=== PATIENT | male | born 1950 | race Caucasian/White ===

== ENCOUNTER 2018-01-19 07:30 | Inpatient (IN) ==
[2018-01-12 15:01] LABS: Basophils # (Auto) 0 K/mcL (0.0-0.3); Basophils % (Auto) 0.5 % (0.0-2.0); Eosinophils # (Auto) 0.2 K/mcL (0.0-0.7); Eosinophils % (Auto) 2.6 % (0.0-7.0); Granulocytes % (Auto) 55.8 % (38.0-78.0); Lymphocytes # (Auto) 2.3 K/mcL (1.5-4.8); Mean Cell Volume 90.7 fL (80.0-100.0); Mean Corpuscular HGB Conc 33.3 g/dL (31.0-36.0); Mean Corpuscular Hemoglobin 30.2 pg (26.0-34.0); Monocytes # (Auto) 0.7 K/mcL (0.1-0.9); Monocytes % (Auto) 9.1 % (1.0-12.0); Platelet Count 249 K/mcL (140-440); RBC 5.06 M/mcL (4.50-5.90); Red Cell Distribution Width 13.3 % (11.5-14.5)
[2018-01-12 15:21] LABS: Blood Urea Nitrogen 14 mg/dl (8-23)
[2018-01-13 09:19] LABS: Appearance,Urine CLEAR; Bilirubin,Urine NEG (NEG); Color,Urine YELLOW; Glucose,Urine (UA) NEGATIVE (NEG); Leukocyte Esterase,Urine NEG /uL (NEG); Protein,Urine NEG (NEG); Specific Gravity,Urine 1.019 (1.000-1.035); Urine Blood NEG mg/dL (<0.03); Urobilinogen,Urine NEG (NEG)
[~2018-01-19 07:30] MED LIST: CELECOXIB 200 MG CAPSULE PO SCH; PREGABALIN 75 MG CAPSULE PO SCH; ceFAZolin 1 GM VIAL IV SCH; oxyCODONE 10 MG TAB.ER.12H PO SCH
[2018-01-19] MEDS ORDERED: fentaNYL 250 MCG/5 ML VIAL IV ONE (18:35)
[2018-01-19] MEDS ORDERED: LIDOCAINE HCL/PF 100 MG/5 ML SYRINGE IV ONE (18:35)
[2018-01-19] MEDS ORDERED: ONDANSETRON 4 MG/2 ML VIAL IV ONE (18:35)
[2018-01-19] MEDS ORDERED: GLYCOPYRROLATE 0.2 MG/ML VIAL IV ONE (18:35)
[2018-01-19] MEDS ORDERED: PROPOFOL 200 MG/20 ML VIAL IV ONE (18:35)
[2018-01-19] MEDS ORDERED: SUCCINYLCHOLINE 20 MG/ML ML IV ONE (18:35)
[2018-01-19] MEDS ORDERED: DEXAMETHASONE 10 MG/ML VIAL IV ONE (18:35)
[2018-01-19] MEDS ORDERED: TRANEXAMIC ACID 1,000 MG/10 ML VIAL IV ONE ×2 (18:35→20:41)
[2018-01-19] MEDS ORDERED: ePHEDrine 50 MG/ML AMPUL IV ONE (18:35)
[2018-01-19] MEDS ORDERED: MIDAZOLAM 5 MG/5 ML VIAL IV ONE (18:35)
[2018-01-19] MEDS ORDERED: GENTAMICIN SULFATE 800 MG/20 ML VIAL IR ONE (19:34)
[2018-01-19] MEDS ORDERED: ePHEDrine 50 MG/ML AMPUL IV PRN (19:36)
[2018-01-19] MEDS ORDERED: MEPERIDINE 25 MG/ML SYRINGE IV PRN (19:36)
[2018-01-19] MEDS ORDERED: FLUMAZENIL 0.1 MG/ML ML IV PRN (19:36)
[2018-01-19] MEDS ORDERED: METHOCARBAMOL 1,000 MG/10 ML VIAL IV PRN (19:36)
[2018-01-19] MEDS ORDERED: HYDROmorphone 2 MG/ML VIAL IV PRN (19:36)
[2018-01-19] MEDS ORDERED: ATROPINE SULFATE 0.4 MG/ML VIAL IV PRN (19:36)
[2018-01-19] MEDS ORDERED: IPRATROPIUM/ALBUTEROL 3 ML AMPUL.NEB NEB PRN (19:36)
[2018-01-19] MEDS ORDERED: diphenhydrAMINE 50 MG/ML VIAL IV PRN (19:36)
[2018-01-19] MEDS ORDERED: ACETAMINOPHEN 1,000 MG/100 ML BOTTLE IV ONE (19:36)
[2018-01-19] MEDS ORDERED: NALOXONE HCL 0.4 MG/ML VIAL IV PRN (19:36)
[2018-01-19] MEDS ORDERED: PROMETHAZINE 25 MG/ML VIAL IV PRN ×2 (19:36→20:41)
[2018-01-19] MEDS ORDERED: ONDANSETRON 4 MG/2 ML VIAL IV PRN ×2 (19:36→20:41)
[2018-01-19] MEDS ORDERED: LACTATED RINGERS 1,000 ML IV SCH (19:45)
--- NOTE | 2018-01-19 20:40 | Brief Operative Note ---
Date of procedure: 01/19/18 Pre-op diagnosis: left shoulder oa, biceps tendonitis Post-op diagnosis: same Procedure: left total shoulder arthroplasty, biceps tenodesis Grafts/Implants: Yes Anesthesia: GETA Complications: none Surgeon: [place] Folding Machine Tender: Ev Velazquez Estimated blood loss (cc): 150 Specimens Removed/Pathology: none sent Condition: stable Disposition: PACU
[2018-01-19] MEDS ORDERED: ONDANSETRON ODT 4 MG TABLET SL PRN (20:41)
[2018-01-19] MEDS ORDERED: KETOROLAC 15 MG/ML VIAL IV PRN (20:41)
[2018-01-19] MEDS ORDERED: FLEETS ADULT ENEMA PR PRN (20:41)
[2018-01-19] MEDS ORDERED: BISACODYL 10 MG SUPP.RECT PR PRN (20:41)
[2018-01-19] MEDS ORDERED: BENZOCAINE/MENTHOL 1 LOZENGE PO PRN (20:41)
[2018-01-19] MEDS ORDERED: HYDROcodone/APAP 10/325MG TABLET PO PRN (20:41)
[2018-01-19] MEDS ORDERED: MAGNESIUM HYDROXIDE 30 ML ORAL.SUSP PO PRN (20:41)
[2018-01-19] MEDS ORDERED: POLYETHYLENE GLYCOL 3350 17 GM PACKET PO PRN (20:41)
[2018-01-19] MEDS ORDERED: METHOCARBAMOL 750 MG TABLET PO PRN (20:41)
--- NOTE | 2018-01-19 20:41 | Discharge Summary ---
Ortho Discharge - TSA - Patient Instructions Diet: Regular Diet Activity: non weight bearing Total Shoulder Protocol: Leave immobilizer in place except for bathing and ROM. Abduction pillow. Continue to wear sling until seen by physician. Codman Pendulum : These exercises use momentum produced by your body to move your shoulder joint. Bend your knees and shift your weight to your front leg, then back, allowing your arm to swing in the same directions. Using the same technique, alternately shift your weight between your right and left legs, allowing your arm to swing from side to side. These exercises are also performed in counterclockwise and clockwise circular motions. Typically these exercises are performed several times per day, for a set number repetitions or minutes, such as 20 times in a row or 5 minutes at a time. Dressing Care: May shower in 2 days - Follow Up Plan Disposition: Home, Self-Care Prognosis: Good Rehab Potential: Good I certify that the patient requires SNF services: Yes Overall status at discharge: patient is progressing back to baseline
[2018-01-19] MEDS ORDERED: SENNOSIDES 1 TABLET PO SCH (21:00)
[2018-01-19] MEDS: fentaNYL 100 MCG/2 ML VIAL IV PRN ×2 (21:27→21:33)
[2018-01-19] MEDS: 0.9 % SODIUM CHLORIDE 1,000 ML IV SCH (22:08)
[2018-01-19] MEDS: 0.9 % SODIUM CHLORIDE 10 ML SYRINGE IV SCH (22:13)
[2018-01-19] MEDS: ceFAZolin 1 GM VIAL IV SCH (23:24)
[2018-01-19] MEDS: DOCUSATE SODIUM 100 MG CAPSULE PO SCH (23:35)
[2018-01-20] MEDS: 0.9 % SODIUM CHLORIDE 1,000 ML IV SCH (05:12)
[2018-01-20] MEDS: 0.9 % SODIUM CHLORIDE 10 ML SYRINGE IV SCH (05:13)
[2018-01-20] MEDS: ceFAZolin 1 GM VIAL IV SCH (06:41)
--- NOTE | 2018-01-20 07:39 | Orthopedic Progress Note ---
Subjective Patient information: Note initiated : 01/20/18 at 7:38 am Service Date, if different from initiated Date: [] Patient: Devan Noonan 67 y/o M admitted on 01/19/18 for Left Total Shoulder Arthroplasty with Bicep Tendon. Chief Complaint: [] Interval history: doing well minimal pain Objective Vital signs: Vital Signs Temp Pulse Pulse Resp BP BP Pulse Ox 01/20/18 07:25 97.5 F 73 14 112/57 97 01/20/18 04:41 97.6 F 81 14 100/59 93 01/20/18 00:49 80 98/61 93 01/19/18 23:49 78 97/58 96 01/19/18 23:19 86 114/65 91 01/19/18 22:57 76 16 92 01/19/18 22:49 72 127/71 93 01/19/18 22:37 95 01/19/18 22:34 74 112/74 96 01/19/18 22:17 77 136/80 98 01/19/18 22:04 74 127/75 96 01/19/18 21:47 97.5 F 77 14 138/77 92 01/19/18 21:34 98.2 F 78 16 113/72 96 01/19/18 21:17 98.2 F 71 14 129/66 97 01/19/18 21:03 98.5 F 84 16 119/66 95 01/19/18 20:48 97.5 F 92 H 16 133/63 92 01/19/18 16:00 96.8 F L 68 18 127/78 Intake and Output 01/19/18 01/20/18 01/20/18 21:59 05:59 13:59 Intake Total 1500 / 1500 983 / 983 Output Total 300 / 300 Balance 1500 / 1500 683 / 683 Intake: IV 883 / 883 Sodium Chloride 0.9% 1,000 ml @ 883 / 883 125 mls/hr IV .Q8H [facility] Rx#: [id number] Oral 100 / 100 IV - Manual Only 1500 / 1500 Output: Void Amount 300 / 300 Other: Weight 299 lb 284 lb Intake & Output: Intake & Output 01/19/18 01/20/18 01/20/18 21:59 05:59 13:59 Intake Total 1500 / 1500 983 / 983 Output Total 300 / 300 Balance 1500 / 1500 683 / 683 Weight 299 lb 284 lb Intake: IV 883 / 883 Sodium Chloride 0.9% 1,000 ml @ 883 / 883 125 mls/hr IV .Q8H [facility] Rx#: [id number] Oral 100 / 100 IV - Manual Only 1500 / 1500 Output: Void Amount 300 / 300 Incision: Yes healing Incision clean and dry: Yes Dressing: Yes clean, Yes dry, Yes intact Weight bearing status: non Neurological exam IM: Yes alert, Yes normal gait, Yes oriented X3, Yes motor sensory intact, Yes neurovascular intact Extremities exam IM: No calf tenderness, Yes Foot pink and warm, Yes neurovascular intact - Labs CBC & BMP: 01/20/18 05:00 01/12/18 13:33 Labs: 01/20/18 01/12/18 05:00 13:33 Hgb 14.0 15.3 Hct 42.4 45.9 Assessment and Plan (1) Osteoarthritis, shoulder pod 1 s/p tsa pain control home today pt Status: Acute
--- NOTE | 2018-01-20 08:06 | XRay Report ---
HISTORY: Reason for Exam:Post-Op Total Shoulder FINDINGS: Patient has well-positioned left shoulder prosthesis. In the glenoid there is a small linear metallic foreign body which may be an anchor. No fracture or abnormal soft tissue calcification are present. Mild arthritis is present at the acromioclavicular joint. There is degenerative disc disease and arthritis in the lower cervical spine. IMPRESSION: Well-positioned left shoulder prosthesis Interpreted and Authenticated by: Devan Cobos 01/20/18
[2018-01-20] MEDS: DOCUSATE SODIUM 100 MG CAPSULE PO SCH (08:28)
--- NOTE | 2018-01-20 09:36 | Operative Note ---
DATE OF OPERATION: 01/19/2018 PREOPERATIVE DIAGNOSES: 1. Left shoulder osteoarthritis. 2. Left shoulder proximal biceps tendonitis. POSTPERATIVE DIAGNOSES: 1. Left shoulder osteoarthritis. 2. Left shoulder proximal biceps tendonitis. PROCEDURES: 1. Left total shoulder arthroplasty. 2. Left shoulder proximal biceps tenodesis soft tissue. SURGEON: Heidy Mattson M.D. [employer] SURGEON: Ev Velazquez PA-C ANESTHESIA: General. ESTIMATED BLOOD LOSS: 200 mL COMPLICATIONS: None noted. SPECIMENS REMOVED: None. DRAINS: None. IMPLANTS: DePuy CMW2 bone cement 20 grams x2, DePuy global anchor peg glenoid, Premieron X-link polyethylene size 48, DePuy global unite anatomic proximal body 135 degrees size 16 [place], DePuy global unite Por[place]oat standard stem size 16, DePuy global unite eccentric humeral head size 48 x 21. INDICATIONS: The patient has had a long-standing history of worsening pain in the shoulder that has failed conservative treatment. Radiographs have confirmed advanced degenerative joint disease. After a long discussion about treatment options, the patient elected to proceed with a total shoulder arthroplasty. The risks and benefits were discussed with the patient in detail including, but not limited to, the risks of anesthesia, problems with the heart or lungs related to anesthesia, infection, compromise or injury to the nerves and blood vessels, deep venous thrombosis, pulmonary embolism, pneumonia, continued pain after surgery, worsening pain or symptoms after surgery, swelling, loss of motion, instability, fracture, arm length discrepancy, and need for repeat surgery. DESCRIPTION OF PROCEDURE: The patient was seen in the pre-anesthesia waiting room where all questions were answered and the correct side and site were identified and marked. The patient was transferred to the operating room and administered the anesthetic and given pre-operative antibiotics. A time-out was then called. The patient was placed in the modified beach chair position with all prominences well padded. The extremity was prepped and draped from the fingers up to the neck. A standard deltopectoral skin incision was created. Dissection was carried down to the deltopectoral groove and the cephalic vein was isolated medially and retracted laterally with the deltoid. Retractors were placed and the coracobrachialis was split up to the coracoacromial ligament allowing retraction of the conjoined tendon. We split the subscapularis 1 cm medial to the bicipital groove and extended the split into the rotator interval. This was tagged for later repair. The biceps was cut and a soft tissue tenodesis was performed into the anterior shoulder with #2 FiberWire. A capsular release was performed in a posterior subperiosteal direction along the humerus. The humeral head was then dislocated. We established intramedullary access and hand reamed up to get good cortical chatter with the DePuy Global AP total shoulder instrumentation. We then used the intramedullary guide and set to about 30 degrees of retroversion. The proximal humerus cut was performed and osteophytes were removed. A metal protector plate was then placed. Attention was then turned to the glenoid. Retractors were placed for optimal visualization and the labrum was excised in its entirety. A centralizing Steinmann pin was placed just into the posterior inferior quadrant in a standard fashion. We reamed over the pin to remove all the cartilage and get to a good base for the prosthesis. The drill was then placed over for the central peg. The glenoid was sized and surface was inspected to confirm conformity. The template base-plate was used to drill the three additional pegs, anchoring each with the anti-rotation peg. All bleeding was stopped with epinephrine soaked sponges. Next, we then cemented the anchor peg glenoid with DBX bone paste placed around the anchor peg and Palacos cement in the three additional peg holes. We allowed the cement to harden and checked the stability and placement of the glenoid. Attention was then turned back to the humerus. We set version and broached up to a stable implant. The humeral head trial was placed and good tension, motion, and stability were obtained at this point. Trials were removed and the final press fit humeral prosthesis was impacted into place with measured version. A final check confirmed adequate motion, tension, and stability. We irrigated with 3 liters of antibiotic saline and closed the subscapularis with #2 FiberWire. We irrigated again and closed the deltopectoral interval with several 0 Vicryl figure of eight sutures. The subcutaneous layer was closed with 2-0 Vicryl and the skin was closed with 4-0 Monocryl in a subcuticular fashion. A sterile pressure dressing was applied and the patient was placed into an abduction sling. All needle and sponge counts were correct. The patient was transferred to the recovery room in stable condition. RACHAEL:jose j Job ID: [id number] Doc ID: [id number] Heidy Mattson MD
== END 2018-01-20 11:35 | disposition home or self-care (01) | DRG 483 ==
LOC: MEDSUR 14:42
PROVIDERS: ADMIT Orthopaedic Surgery Sports Medicine; ATTEND Orthopaedic Surgery Sports Medicine